=== PATIENT | male | born 1940 | race Caucasian/White ===

== ENCOUNTER 2019-01-08 11:51 | Emergency (ER) | payer MEDICARE, OTHER ==
[2019-01-08 12:25] VITALS: BP 168/81
--- NOTE | 2019-01-08 13:48 | EDM.PDOC ---
ED HPI GENERAL MEDICAL PROBLEM - General Chief Complaint: Genitourinary Problem Stated Complaint: BLOOD IN URINE Time Seen by Provider: 01/08/19 12:35 Source of Information: Reports: Patient History Limitations: Reports: No Limitations - History of Present Illness INITIAL COMMENTS - FREE TEXT/NARRATIVE: This patient comes in for hematuria. He's had some decreasing stream for one month. He noticed blood in the urine starting yesterday. He also has some pain in the urethra when he voids. Sometimes he has trouble emptying his bladder. He takes aspirin. penile Pain Score (Numeric/FACES): 3 - Related Data Allergies Allergy/AdvReac Type Severity Reaction Status Date / Time codeine Allergy Cannot Verified 05/28/15 12:59 Remember Home Meds: Home Meds Aspirin 325 mg PO DAILY 05/28/15 [History] Lisinopril [Prinivil] 20 mg PO DAILY 05/28/15 [History] PARoxetine HCl [Paxil] 40 mg PO DAILY 05/28/15 [History] Simvastatin [Zocor] 80 mg PO DAILY 05/28/15 [History] Lutein/Minerals/Vit A,C & E [Ocuvite] 1 tab PO DAILY 01/08/19 [History] Past Medical History Cardiovascular History: Reports: Hypertension Other Respiratory History: allergies causing "stuffiness" in nose Gastrointestinal History: Reports: Chronic Constipation Other Gastrointestinal History: ulcer, hernia Musculoskeletal History: Reports: Fracture Psychiatric History: Reports: Anxiety, Depression Dermatologic History: Reports: Psoriasis, Other (See Below) Other Dermatologic History: ulcers - Infectious Disease History Infectious Disease History: Reports: Chicken Pox, Measles, Mumps - Past Surgical History HEENT Surgical History: Reports: Other (See Below) Other HEENT Surgeries/Procedures: ruptured ear drums repaired Other GI Surgeries/Procedures: ulcer removed Social & Family History - Tobacco Use Smoking Status *Q: Never Smoker Second Hand Smoke Exposure: No - Caffeine Use Caffeine Use: Reports: Coffee - Recreational Drug Use Recreational Drug Use: No ED ROS GENERAL - Review of Systems Review Of Systems: ROS reveals no pertinent complaints other than HPI. ED EXAM, RENAL/ - Physical Exam Exam: See Below Exam Limited By: No Limitations General Appearance: Alert, WD/WN, No Apparent Distress Respiratory/Chest: Lungs Clear Cardiovascular: Regular Rate, Rhythm GI/Abdominal: Soft, Non-Tender, Other (Bladder is not palpable) Rectal (Males) Exam: Normal Exam, Prostate Normal Back Exam: Normal Inspection Extremities: Normal Inspection Neurological: Alert, Oriented Skin Exam: Warm, Dry Course - Vital Signs Last Recorded V/S: Last Vital Signs Temp 36.4 C 01/08/19 12:11 Pulse 86 01/08/19 12:11 Resp 13 01/08/19 12:11 BP 168/81 H 01/08/19 12:11 Pulse Ox 97 01/08/19 12:11 - Orders/Labs/Meds Orders: Active Orders 24 hr Category Date Time Status CULTURE URINE [RM] Stat Lab 01/08/19 13:40 Stop Req CULTURE URINE [RM] Stat Lab 01/08/19 13:43 Ordered Labs: Laboratory Tests 01/08/19 01/08/19 01/08/19 Range/Units 12:46 12:46 12:46 WBC 11.9 H (4.5-11.0) K/uL RBC 4.91 (4.30-5.90) M/uL Hgb 11.8 L (12.0-15.0) g/dL Hct 37.7 L (40.0-54.0) % MCV 77 L (80-98) fL MCH 24 L (27-31) pg MCHC 31 L (32-36) % Plt Count 404 H (150-400) K/uL Neut % (Auto) 78 H (36-66) % Lymph % (Auto) 13 L (24-44) % [place] % (Auto) 7 H (2-6) % Eos % (Auto) 2 (2-4) % Baso % (Auto) 0 (0-1) % PT 11.6 (9.5-12.0) sec INR 1.06 (0.80-1.20) APTT 28.0 (27.0-36.0) sec Sodium 136 L (140-148) mmol/L Potassium 4.2 (3.6-5.2) mmol/L Chloride 101 (100-108) mmol/L Carbon Dioxide 25 (21-32) mmol/L Anion Gap 14.2 H (5.0-14.0) mmol/L BUN 13 (7-18) mg/dL Creatinine 1.3 (0.8-1.3) mg/dL Est Cr Clr Drug Dosing 53.57 mL/min Estimated GFR (MDRD) 53 L (>60) Glucose 112 H (74-106) mg/dL Calcium 9.3 (8.5-10.1) mg/dL Total Bilirubin 0.7 (0.2-1.0) mg/dL AST 23 (15-37) U/L ALT 27 (12-78) U/L Alkaline Phosphatase 80 (46-116) U/L Total Protein 7.4 (6.4-8.2) g/dL Albumin 3.8 (3.4-5.0) g/dL Globulin 3.6 H (2.3-3.5) g/dL Albumin/Globulin Ratio 1.1 L (1.2-2.2) Urine Color Urine Appearance Urine pH (4.5-8.0) Ur Specific [place] (1.008-1.030) Urine Protein (NEGATIVE) mg/dL Urine Glucose (UA) (NEGATIVE) mg/dL Urine Ketones (NEGATIVE) mg/dL Urine Occult Blood (NEGATIVE) Urine Nitrite (NEGAITVE) Urine Bilirubin (NEGATIVE) Urine Urobilinogen (NORMAL) mg/dL Ur Leukocyte Esterase (NEGATIVE) Urine RBC (0-5) Urine WBC (0-5) Ur Epithelial Cells Amorphous Sediment Urine Bacteria Urine Mucus 01/08/19 Range/Units 13:21 WBC (4.5-11.0) K/uL RBC (4.30-5.90) M/uL Hgb (12.0-15.0) g/dL Hct (40.0-54.0) % MCV (80-98) fL MCH (27-31) pg MCHC (32-36) % Plt Count (150-400) K/uL Neut % (Auto) (36-66) % Lymph % (Auto) (24-44) % [place] % (Auto) (2-6) % Eos % (Auto) (2-4) % Baso % (Auto) (0-1) % PT (9.5-12.0) sec INR (0.80-1.20) APTT (27.0-36.0) sec Sodium (140-148) mmol/L Potassium (3.6-5.2) mmol/L Chloride (100-108) mmol/L Carbon Dioxide (21-32) mmol/L Anion Gap (5.0-14.0) mmol/L BUN (7-18) mg/dL Creatinine (0.8-1.3) mg/dL Est Cr Clr Drug Dosing mL/min Estimated GFR (MDRD) (>60) Glucose (74-106) mg/dL Calcium (8.5-10.1) mg/dL Total Bilirubin (0.2-1.0) mg/dL AST (15-37) U/L ALT (12-78) U/L Alkaline Phosphatase (46-116) U/L Total Protein (6.4-8.2) g/dL Albumin (3.4-5.0) g/dL Globulin (2.3-3.5) g/dL Albumin/Globulin Ratio (1.2-2.2) Urine Color Brown Urine Appearance Cloudy Urine pH 6.0 (4.5-8.0) Ur Specific [place] 1.015 (1.008-1.030) Urine Protein 30 H (NEGATIVE) mg/dL Urine Glucose (UA) Normal (NEGATIVE) mg/dL Urine Ketones 15 H (NEGATIVE) mg/dL Urine Occult Blood Large (NEGATIVE) Urine Nitrite Negative (NEGAITVE) Urine Bilirubin Negative (NEGATIVE) Urine Urobilinogen Normal (NORMAL) mg/dL Ur Leukocyte Esterase Moderate (NEGATIVE) Urine RBC Packed H (0-5) Urine WBC 10-20 H (0-5) Ur Epithelial Cells Not seen Amorphous Sediment Few Urine Bacteria Not seen Urine Mucus Not seen - Re-Assessments/Exams Free Text/Narrative Re-Assessment/Exam: 01/08/19 13:47 Bladder scan showed the bladder was empty Departure - Departure Time of Disposition: 13:46 Disposition: Home, Self-Care 01 Condition: Fair Clinical Impression: Hemorrhagic cystitis - Discharge Information Referrals: Carlos Thurston MD [Primary Care Provider] - Additional Instructions: Take Bactrim DS one tablet twice daily for 1 week. Be sure to drink a lot of water. Follow-up with your early this coming week. Most likely you will eventually need to see a urologist but your Dr. will decide when the appropriate time is. Hopefully the bleeding will clear up with antibiotics. A urine culture was done and will take about a day or 2 for results - My Orders Last 24 Hours: My Active Orders 01/08/19 13:40 CULTURE URINE [RM] Stat 01/08/19 13:43 CULTURE URINE [RM] Stat - Assessment/Plan Last 24 Hours: My Active Orders 01/08/19 13:40 CULTURE URINE [RM] Stat 01/08/19 13:43 CULTURE URINE [] Stat
== END 2019-01-08 14:02 | disposition home or self-care (01) ==
LOC: JP.ED 11:51
DX: N30.91 Cystitis, unspecified with hematuria (principal); I10 Essential (primary) hypertension; F41.9 Anxiety disorder, unspecified; F32.9 Major depressive disorder, single episode, unspecified; Z79.82 Long term (current) use of aspirin; Z79.899 Other long term (current) drug therapy; Z88.5 Allergy status to narcotic agent
CPT/HCPCS: 36415; 51798; 80053; 81001; 85025; 85610; 85730; 87086; 99284-25